=== PATIENT | male | born 1975 | race Caucasian/White ===

== ENCOUNTER 2020-08-31 14:25 | Emergency (ER) | payer OTHER ==
[2020-08-31 14:35] VITALS: BP 160/100; PULSE 84
[2020-08-31] MEDS ORDERED: Iopamidol 612 MG/ML 100 ML Bottle IVPUSH ONE (15:20)
[2020-08-31] MEDS ORDERED: traMADol 50 MG Tab PO ONE (15:44)
[2020-08-31] MEDS ORDERED: Ondansetron 4 MG/2 ML SDV IVPUSH ONE (15:45)
--- NOTE | 2020-08-31 15:45 | EDM.PDOC ---
ED HPI GENERAL MEDICAL PROBLEM - General Chief Complaint: Genitourinary Problem Stated Complaint: groin pain Time Seen by Provider: 08/31/20 14:40 Source of Information: Reports: Patient History Limitations: Reports: No Limitations - History of Present Illness INITIAL COMMENTS - FREE TEXT/NARRATIVE: Patient is waiting for surgery on Sep 06 for left inguinal hernia. Increased pain in area today. Saw primary provider who recommended that he come to the ER to rule out possible incarceration of hernia. Left Groin Pain Score (Numeric/FACES): 7 - Related Data Allergies Allergy/AdvReac Type Severity Reaction Status Date / Time No Known Allergies Allergy Verified 08/31/20 14:26 Home Meds: Home Meds Metoprolol Succinate [Toprol XL 50mg] 50 mg PO DAILY 03/24/15 [History] Simvastatin 40 mg PO DAILY 03/24/15 [History] amLODIPine [Norvasc] 5 mg PO DAILY 03/24/15 [History] Past Medical History HEENT History: Reports: Impaired Vision Cardiovascular History: Reports: High Cholesterol, Hypertension - Past Surgical History HEENT Surgical History: Reports: None Cardiovascular Surgical History: Reports: None GI Surgical History: Reports: Hernia, Inguinal Social & Family History - Tobacco Use Smoking Status *Q: Never Smoker Second Hand Smoke Exposure: No - Caffeine Use Caffeine Use: Reports: None - Recreational Drug Use Recreational Drug Use: No ED ROS GENERAL - Review of Systems Review Of Systems: See Below Constitutional: Reports: No Symptoms HEENT: Reports: No Symptoms Respiratory: Reports: No Symptoms Cardiovascular: Reports: No Symptoms GI/Abdominal: Reports: Abdominal Pain. Denies: Constipation, Diarrhea, Distension, Nausea, Vomiting : Reports: No Symptoms Musculoskeletal: Reports: No Symptoms Skin: Reports: No Symptoms Neurological: Reports: No Symptoms Psychiatric: Reports: No Symptoms Hematologic/Lymphatic: Reports: No Symptoms Immunologic: Reports: No Symptoms ED EXAM, GENERAL - Physical Exam Exam: See Below Exam Limited By: No Limitations General Appearance: Alert, WD/WN, No Apparent Distress Eye Exam: Bilateral Eye: EOMI, PERRL Ears: Hearing Grossly Normal Nose: No: Nasal Deformity, Nasal Swelling, Nasal Drainage Throat/Mouth: Normal Lips, Normal Voice, No Airway Compromise Head: Atraumatic, Normocephalic Neck: Normal Inspection, Supple, Non-Tender, Full Range of Motion Respiratory/Chest: Lungs Clear Cardiovascular: Regular Rate, Rhythm GI/Abdominal: Normal Bowel Sounds, Other (area of tenderness/firmness noted left inguinal region. Reproduces pain complaint with palpation. Abdomen otherwise is soft. ) (Male) Exam: Deferred Rectal (Males) Exam: Deferred Back Exam: No: CVA Tenderness (L), CVA Tenderness (R), Muscle Spasm Extremities: Normal Inspection, Normal Capillary Refill Neurological: Alert, Oriented, Normal Cognition, No Motor/Sensory Deficits Psychiatric: Normal Affect, Normal Mood Skin Exam: Warm, Intact, Normal Color Course - Vital Signs Last Recorded V/S: Last Vital Signs Temp 36.7 C 08/31/20 14:33 Pulse 84 08/31/20 14:33 Resp 12 08/31/20 14:33 BP 160/100 H 08/31/20 14:33 Pulse Ox 98 08/31/20 14:33 - Orders/Labs/Meds Orders: Active Orders 24 hr Category Date Time Status Abdomen Pelvis w Cont [CT] Stat Exams 08/31/20 15:37 Taken Labs: Laboratory Tests 08/31/20 08/31/20 08/31/20 Range/Units 15:25 15:25 15:25 WBC 7.8 (4.0-10.2) K/uL RBC 4.98 (4.33-5.41) M/uL Hgb 15.4 (13.1-16.8) g/dL Hct 43.9 (39.0-49.0) % MCV 88.2 (84.0-98.0) fL MCH 30.9 (28.2-33.3) pg MCHC 35.1 (31.7-36.0) g/dL RDW 13.5 (11.2-14.1) % Plt Count 241 (150-350) K/uL Neut % (Auto) 54.8 (45.0-80.0) % Lymph % (Auto) 33.3 (10.0-50.0) % [place] % (Auto) 7.4 (2.0-14.0) % Eos % (Auto) 4.1 (0.0-5.0) % Baso % (Auto) 0.4 (0.0-2.0) % Neut # (Auto) 4.29 (1.40-7.00) K/uL Lymph # (Auto) 2.61 (0.50-3.50) K/uL Walton # (Auto) 0.58 (0.00-1.00) K/uL Eos # (Auto) 0.32 (0.00-0.50) K/uL Baso # (Auto) 0.03 (0.00-0.20) K/uL Sodium 139 (136-145) mmol/L Potassium 3.8 (3.5-5.1) mmol/L Chloride 102 (98-107) mmol/L Carbon Dioxide 25.0 (21.0-32.0) mmol/L BUN 16 (7-18) mg/dL Creatinine 0.92 (0.51-1.17) mg/dL Est Cr Clr Drug Dosing 103.59 mL/min Estimated GFR (MDRD) > 60 mL/min Glucose 129 H (74-106) mg/dL Lactic Acid 1.4 (0.4-2.0) mmol/L Calcium 8.8 (8.5-10.1) mg/dL Total Bilirubin 0.5 (0.2-1.0) mg/dL AST 44 H (15-37) U/L ALT 78 (12-78) U/L Alkaline Phosphatase 97 (46-116) IU/L Total Protein 8.3 H (6.4-8.2) g/dL Albumin 4.4 (3.4-5.0) g/dL Specimen Type Urine Color Urine Appearance Urine pH (5.0-9.0) Ur Specific [place] (1.005-1.030) Urine Protein (NEGATIVE) mg/dL Urine Glucose (UA) (NEGATIVE) mg/dL Urine Ketones (NEGATIVE) mg/dL Urine Occult Blood (NEGATIVE) Urine Nitrite (NEGATIVE) Urine Bilirubin (NEGATIVE) Urine Urobilinogen (0.2-1.0) E.U./dL Ur Leukocyte Esterase (NEGATIVE) Urine RBC /HPF Urine WBC /HPF Ur Epithelial Cells /LPF Urine Bacteria (NONE TO FEW) /HPF 08/31/20 Range/Units 16:46 WBC (4.0-10.2) K/uL RBC (4.33-5.41) M/uL Hgb (13.1-16.8) g/dL Hct (39.0-49.0) % MCV (84.0-98.0) fL MCH (28.2-33.3) pg MCHC (31.7-36.0) g/dL RDW (11.2-14.1) % Plt Count (150-350) K/uL Neut % (Auto) (45.0-80.0) % Lymph % (Auto) (10.0-50.0) % Walton % (Auto) (2.0-14.0) % Eos % (Auto) (0.0-5.0) % Baso % (Auto) (0.0-2.0) % Neut # (Auto) (1.40-7.00) K/uL Lymph # (Auto) (0.50-3.50) K/uL Walton # (Auto) (0.00-1.00) K/uL Eos # (Auto) (0.00-0.50) K/uL Baso # (Auto) (0.00-0.20) K/uL Sodium (136-145) mmol/L Potassium (3.5-5.1) mmol/L Chloride (98-107) mmol/L Carbon Dioxide (21.0-32.0) mmol/L BUN (7-18) mg/dL Creatinine (0.51-1.17) mg/dL Est Cr Clr Drug Dosing mL/min Estimated GFR (MDRD) mL/min Glucose (74-106) mg/dL Lactic Acid (0.4-2.0) mmol/L Calcium (8.5-10.1) mg/dL Total Bilirubin (0.2-1.0) mg/dL AST (15-37) U/L ALT (12-78) U/L Alkaline Phosphatase (46-116) IU/L Total Protein (6.4-8.2) g/dL Albumin (3.4-5.0) g/dL Specimen Type Urin[place]ad Urine Color Yellow Urine Appearance Clear Urine pH 5.0 (5.0-9.0) Ur Specific [place] <= 1.005 (1.005-1.030) Urine Protein Negative (NEGATIVE) mg/dL Urine Glucose (UA) Negative (NEGATIVE) mg/dL Urine Ketones Negative (NEGATIVE) mg/dL Urine Occult Blood Trace-intact H (NEGATIVE) Urine Nitrite Negative (NEGATIVE) Urine Bilirubin Negative (NEGATIVE) Urine Urobilinogen 0.2 (0.2-1.0) E.U./dL Ur Leukocyte Esterase Negative (NEGATIVE) Urine RBC 0-5 /HPF Urine WBC Not seen /HPF Ur Epithelial Cells Not seen /LPF Urine Bacteria Not seen (NONE TO FEW) /HPF Meds: Medications Discontinued Medications Generic Name Dose Route Start Last Admin Trade Name José Manuel PRN Reason Stop Dose Admin Iopamidol 100 ml 08/31/20 15:20 08/31/20 15:52 Isovue-300 (61%) IVPUSH 08/31/20 15:21 100 ml ONETIME ONE Administration Ondansetron HCl 4 mg 08/31/20 15:45 08/31/20 16:00 Zofran IVPUSH 08/31/20 15:46 Not Given ONETIME ONE Tramadol HCl 100 mg 08/31/20 15:44 08/31/20 16:07 Ultram PO 08/31/20 15:45 Not Given ONETIME ONE - Re-Assessments/Exams Free Text/Narrative Re-Assessment/Exam: 08/31/20 15:44 CT of abd/pelvis ordered to better assess hernia. Baseline labs ordered. 08/31/20 17:29 Radiology noted left inguinal hernia containing short segment of sigmoid colon without evidence of obstruction at that time. Patient is feeling better. Pain much improved. Normal CBC. AST mildly elevated. Normal UA. No changes suggestive of acute incarceration at this time. Plan is to let patient go home and take him off work at [employer] until his surgery gets performed next . Suspect lifting/physical activity at [employer] aggravated the hernia today. Precautions reviewed. To return to the ER if any sudden worsening is noted. Patient comfortable with plan. BP 150/91 at discharge. To follow up with PCP next week for recheck and med adjustment as needed. Departure - Departure Time of Disposition: 17:32 Disposition: Home, Self-Care 01 Condition: Good Clinical Impression: Left inguinal hernia - Discharge Information *PRESCRIPTION DRUG MONITORING PROGRAM REVIEWED*: Not Applicable *COPY OF PRESCRIPTION DRUG MONITORING REPORT IN PATIENT ZE: Not Applicable Referrals: PCP,None [Primary Care Provider] - Forms: ED Department Discharge Additional Instructions: Take it easy as we discussed until you get your surgery. Please return to the ER if you have sudden sharp increase in pain in area of hernia or abdomen. Follow up with clinic Thursday or Thursday and get BP rechecked. It was elevated tonight and you may need medication adjustment. Sepsis Event Note (ED) - Evaluation Sepsis Screening Result: No Definite Risk - Focused Exam Vital Signs: Vital Signs Temp Pulse Resp BP Pulse Ox 08/31/20 14:33 36.7 C 84 12 160/100 H 98 - My Orders Last 24 Hours: My Active Orders 08/31/20 15:37 Abdomen Pelvis w Cont [CT] Stat - Assessment/Plan Last 24 Hours: My Active Orders 08/31/20 15:37 Abdomen Pelvis w Cont [CT] Stat
[2020-08-31 16:04] LABS: CHLORIDE,CL 102 mmol/L (98-107); SODIUM,NA 139 mmol/L (136-145)
== END 2020-08-31 17:46 | disposition home or self-care (01) ==
LOC: LL.ED 14:25
DX: K40.90 Unilateral inguinal hernia, without obstruction or gangrene, not specified as recurrent (principal); I10 Essential (primary) hypertension; E78.00 Pure hypercholesterolemia, unspecified; Z79.899 Other long term (current) drug therapy
CPT/HCPCS: 36415; 74177; 80053; 81001; 83605; 85025; 99284; Q9967; 99283

== ENCOUNTER 2020-09-06 07:46 | Day surgery (SDC) | payer OTHER ==
[~2020-09-06 07:46] MED LIST: Lactated Ringers 1,000 ML IV SCH; Sodium Chloride 0.9% 10 ML Syringe FLUSH PRN
[2020-09-06] MEDS ORDERED: fentaNYL 100 MCG/2 ML SDV ONE ×2 (08:28→10:40)
[2020-09-06] MEDS ORDERED: Midazolam 1 MG/ML 2 ML SDV ONE ×2 (08:28→10:40)
[2020-09-06] MEDS ORDERED: Ketamine 500 mg/10 ML MDV ONE ×2 (08:29→10:40)
[2020-09-06] MEDS ORDERED: Propofol 200 MG/20 ML SDV ONE ×2 (08:29→10:40)
--- NOTE | 2020-09-06 09:15 | PCM.HPR ---
H & P Addendum review - H & P Addendum Review Date of Original H & P: 08/23/20 Date Reviewed: 09/06/20 Time Reviewed: 08:00 Patient was Examined: No Changes
[2020-09-06] MEDS ORDERED: Bupivacaine 0.25%/EPINEPHrine 1:200,000 30 ML SDV INFILT ONE (09:20)
[2020-09-06] MEDS ORDERED: ceFAZolin 1 GM Vial ONE (10:40)
--- NOTE | 2020-09-06 10:48 | PCM.OPNOTE ---
- General Post-Op/Procedure Note Date of Surgery/Procedure: 09/06/20 Operative Procedure(s): L IH Repeair with mesh Findings: Indirect hernia Pre Op Diagnosis: L IH Post-Op Diagnosis: Same Anesthesia Technique: General LMA, Local Primary Surgeon: Faustino Salvador Anesthesia Provider: Carol RODRIGUEZ in mLs: 5 Complications: None Condition: Good
[2020-09-06 14:36] VITALS: BP 127/88; PULSE 76
--- NOTE | 2020-09-06 14:41 | OR ---
Date of Procedure: 09/06/2020 PREOPERATIVE DIAGNOSIS: Left inguinal hernia. POSTOPERATIVE DIAGNOSIS: Left inguinal hernia. PROCEDURE: Left inguinal hernia repair with mesh. ANESTHESIA: General LMA with local. DESCRIPTION OF PROCEDURE: The patient was brought to the operating room where IV sedation was administered. Left groin area was prepped with ChloraPrep and draped sterilely. Surgical site had been verified by myself and the patient and time-out performed. A 50:50 mixture of 1% lidocaine with epinephrine and 0.25% Marcaine was used for local anesthesia. A routine hernia incision was made 2 fingerbreadths above the inguinal canal and extended through the subcutaneous tissue. A large defect in the external fascia with a bulging fatty tissue was present and made visualization difficult. I tried doing some dissection and it was too difficult, so I had this converted to a general anesthesia with LMA. I was able to identify the external fascia and opened this a bit further laterally. The ilioinguinal nerve was identified and retracted inferiorly and protected from injury. A large amount of fatty material from the preperitoneal space was bulging. I began to separate this and dissected a cord and retracted this with a Sangeeta inferiorly. A small cord lipoma was present, which was ligated at its base with 2-0 Vicryl. The fatty contents appeared to be omentum or preperitoneal fat that I reduced back into the preperitoneal space and reapproximated the indirect hernia defect with a 2-0 Vicryl suture at the internal ring. This finally allowed good visualization. Some cremasteric muscle fibers were split to allow adequate placement of the mesh. A large precut keyhole polypropylene mesh was then chosen and secured to the pubic tubercle with 0 prolene. Three more interrupted sutures were used to secure this to Dani's ligament inferiorly and then a transition stitch made to the shelving edge of Poupart's ligament medial to the femoral vein. The edges of the mesh were brought around the nerve and cord and reapproximated laterally with 0 Prolene such that the tip of the small finger was snugly fit into the opening. The edges of the mesh were trimmed to length laterally and tucked beneath the external fascia. Several more interrupted sutures were used to secure the inferior edge of the mesh to the Poupart's ligament inferiorly. Lastly, the superior edge of the mesh was secured to the muscle with interrupted 0 Prolene providing a tension-free repair. Wound was thoroughly irrigated with Ancef and saline and return was clear and hemostasis assured. External fascia was closed with a running 3-0 Vicryl. Subcutaneous tissue was reapproximated with 3-0 Vicryl and skin closed with a running 4-0 Vicryl subcuticular suture. Benzoin and Steri-Strips were placed and a sterile dressing applied. Patient tolerated the procedure well. Blood loss was less than 5 mL. Testicles were in the scrotum following the procedure. He returned to postanesthesia in stable condition. DUSTY SHARP MD /[id number]
== END 2020-09-06 13:00 | disposition home or self-care (01) ==
LOC: LL.SDS 07:46
PROVIDERS: ATTEND Surgery
DX: K40.90 Unilateral inguinal hernia, without obstruction or gangrene, not specified as recurrent (principal); D17.6 Benign lipomatous neoplasm of spermatic cord; I10 Essential (primary) hypertension; E78.2 Mixed hyperlipidemia; Z79.899 Other long term (current) drug therapy; Z87.891 Personal history of nicotine dependence; Z01.812 Encounter for preprocedural laboratory examination; Z20.828 Contact with and (suspected) exposure to other viral communicable diseases
CPT/HCPCS: 00830; 00840; C1781; J0690; J2001; J2250; J2704; J3010; U0002

== ENCOUNTER 2020-09-20 07:48 | Day surgery (SDC) | payer OTHER ==
[~2020-09-20 07:48] MED LIST changes: -Lactated Ringers 1,000 ML IV SCH
[2020-09-20] MEDS ORDERED: Lactated Ringers 1,000 ML IV SCH (08:00)
[2020-09-20] MEDS ORDERED: Midazolam 1 MG/ML 2 ML SDV ONE ×2 (08:34→09:03)
[2020-09-20] MEDS ORDERED: Propofol 200 MG/20 ML SDV ONE ×2 (08:35→09:03)
[2020-09-20] MEDS ORDERED: fentaNYL 250 MCG/5 ML SDV ONE ×2 (08:35→09:03)
[2020-09-20] MEDS ORDERED: Succinylcholine 200 MG/10 ML MDV ONE (09:03)
[2020-09-20] MEDS ORDERED: Dexamethasone 10 MG/ML SDV ONE (09:03)
[2020-09-20] MEDS ORDERED: Glycopyrrolate 0.2 MG/ML SDV ONE (09:03)
[2020-09-20] MEDS ORDERED: Ondansetron 4 MG/2 ML SDV ONE (09:03)
[2020-09-20] MEDS ORDERED: Neostigmine Methylsulfate 10 MG/10 ML MDV ONE (09:03)
[2020-09-20] MEDS ORDERED: ceFAZolin 1 GM Vial ONE (09:03)
--- NOTE | 2020-09-20 09:10 | PCM.HPR ---
H & P Addendum review - H & P Addendum Review Date of Original H & P: 08/23/20 Date Reviewed: 09/20/20 Time Reviewed: 09:10 Patient was Examined: No Changes (Left side is healing well, ok to proced with right side today)
[2020-09-20] MEDS ORDERED: Bupivacaine 0.25%/EPINEPHrine 1:200,000 30 ML SDV INFILT ONE (09:22)
[2020-09-20] MEDS ORDERED: Acetaminophen/HYDROcodone 325-5 MG Tab PO PRN (10:30)
--- NOTE | 2020-09-20 10:37 | PCM.OPNOTE ---
- General Post-Op/Procedure Note Date of Surgery/Procedure: 09/20/20 Operative Procedure(s): R IH Repair with mesh Findings: Direct hernia Pre Op Diagnosis: R IH Post-Op Diagnosis: Same Anesthesia Technique: General LMA, Local Primary Surgeon: Faustino Salvador Anesthesia Provider: Carol RODRIGUEZ in mLs: 5 Complications: None Condition: Good
[2020-09-20 13:53] VITALS: BP 120/83; PULSE 85
--- NOTE | 2020-09-25 07:02 | OR ---
Date of Procedure: 09/20/2020 PREOPERATIVE DIAGNOSIS: Right inguinal hernia. POSTOPERATIVE DIAGNOSIS: Right inguinal hernia. PROCEDURE: Right inguinal hernia repair with mesh. ANESTHESIA: General LMA with local. PROCEDURE IN DETAIL: Patient was brought to the operating room after surgical site had been verified by myself and the patient. Time-out was performed. IV Ancef had been administered. General anesthesia was administered with laryngeal mask airway. The right groin was clipped, prepped with ChloraPrep and draped sterilely. A 50/50 mixture of 1% lidocaine with epinephrine and 0.25% Marcaine was infiltrated in the skin and later at the level of the muscle and fascia. A routine hernia incision was made 2 fingerbreadths above the inguinal ligament and extended through the subcutaneous tissue. External fascia was identified and opened in line with a large external ring where the hernia was bulging through. The ilioinguinal nerve was identified and retracted superiorly and protected from injury. The cord structures were dissected off the pubic tubercle and a [place] drain placed around these. The cremasteric muscle fibers were and divided between clamps and tied with 3-0 Vicryl. I was able to separate a medium size cord lipoma off the cord and tie this at the level of the internal ring with 3-0 Vicryl and transected. Lastly, I the cord from the direct hernia defect, which contained preperitoneal fat. The direct hernia was reduced with a running 2-0 Vicryl to aid in visualization. A routine hernia repair was then performed by using a large precut keyhole polypropylene mesh and securing it to the pubic tubercle with 0 Prolene. A few more interrupted sutures were used to secure to Dani's ligament inferiorly, and then, a transition stitch made to the shelving edge of Poupart's ligament medial to the femoral vein. The edges of the mesh were brought around the cord and nerve and secured laterally such that the tip of the small finger would snugly fit into the opening. The mesh was trimmed to length and tucked laterally beneath the external fascia. The inferior edge was finished being secured to the shelving edge of Poupart's ligament, and then, interrupted 0 Prolene sutures were used to secure the superior edge to the muscle providing a tension-free repair. Wound was thoroughly irrigated with Ancef and saline and return was clear and hemostasis was assured. External fascia was closed with a running 2-0 Vicryl. Subcutaneous tissue was reapproximated with 2-0 Vicryl and skin closed with a running 4-0 Vicryl subcuticular suture. Benzoin and Steri-Strips were placed and a sterile dressing applied. The testicles were in the scrotum following the procedure. Estimated blood loss was less than 5 mL. He returned to Postanesthesia in stable condition. MODL HUSEYIN SHARP MD /[id number]
== END 2020-09-20 13:33 | disposition home or self-care (01) ==
LOC: LL.SDS 07:48
PROVIDERS: ATTEND Surgery
DX: K40.90 Unilateral inguinal hernia, without obstruction or gangrene, not specified as recurrent (principal); D17.6 Benign lipomatous neoplasm of spermatic cord; I10 Essential (primary) hypertension; E78.2 Mixed hyperlipidemia; Z79.899 Other long term (current) drug therapy; Z87.891 Personal history of nicotine dependence; Z01.812 Encounter for preprocedural laboratory examination; Z20.828 Contact with and (suspected) exposure to other viral communicable diseases
CPT/HCPCS: 00830; 87635; C1781; J0330; J0690; J1100; J2001; J2250; J2405; J2704; J2710; J3010; J3490; J7120; U0002

== ENCOUNTER 2023-04-01 10:22 | Emergency (ER) | payer OTHER ==
[2023-04-01 10:30] VITALS: BP 136/95; PULSE 91
[2023-04-01] MEDS ORDERED: Lidocaine 2% 5 ML SDV INJECT ONE (10:49)
[2023-04-01] MEDS ORDERED: Bacitracin/Neomycin/Polymyxin B Oint 0.9 GM U/D Packet TOP ONE (11:18)
== END 2023-04-01 12:04 | disposition home or self-care (01) ==
LOC: LL.ED 10:22
DX: S61.213A Laceration without foreign body of left middle finger without damage to nail, initial encounter (principal); S61.215A Laceration without foreign body of left ring finger without damage to nail, initial encounter; E78.00 Pure hypercholesterolemia, unspecified; I10 Essential (primary) hypertension; M19.90 Unspecified osteoarthritis, unspecified site; Z87.891 Personal history of nicotine dependence; Z79.82 Long term (current) use of aspirin; Z79.899 Other long term (current) drug therapy; W23.0XXA Caught, crushed, jammed, or pinched between moving objects, initial encounter; Y92.89 Other specified places as the place of occurrence of the external cause; Y99.0 Civilian activity done for income or pay
CPT/HCPCS: 12002; 73140-F2; 99283; J3490

== ENCOUNTER 2024-02-18 08:29 | Day surgery (SDC) | payer OTHER ==
[~2024-02-18 08:29] MED LIST changes: +Propofol 200 MG/20 ML SDV ONE; -Sodium Chloride 0.9% 10 ML Syringe FLUSH PRN
[2024-02-18] MEDS ORDERED: Sodium Chloride 0.9% 10 ML Syringe FLUSH PRN ×2 (09:14→12:00)
[2024-02-18] MEDS: Lactated Ringers 1,000 ML IV SCH (09:21)
[2024-02-18] MEDS ORDERED: Lactated Ringers 1,000 ML IV SCH (12:00)
[2024-02-18 13:29] VITALS: BP 131/79; PULSE 85
== END 2024-02-18 12:05 | disposition home or self-care (01) ==
LOC: LL.SDS 08:29
PROVIDERS: ATTEND Surgery
DX: Z12.11 Encounter for screening for malignant neoplasm of colon (principal); I10 Essential (primary) hypertension; E78.2 Mixed hyperlipidemia; Z86.010 Personal history of colon polyps; Z87.891 Personal history of nicotine dependence; Z79.82 Long term (current) use of aspirin; Z79.899 Other long term (current) drug therapy
CPT/HCPCS: 00812; J2704; J7120